=== PATIENT | female | born 1980 | race Caucasian/White ===

== ENCOUNTER 2017-08-17 23:45 | Inpatient (IN) | payer OTHER ==
[~2017-08-17] VITALS: Ht 154.9 cm; Wt 63.5 kg
[2017-08-18] MEDS: LR(*) 1000 ML BAG 1,000 ML IV PRN ×4 (00:45→12:30)
[2017-08-18] MEDS ORDERED: PENICILLIN G 5 MILLUN/100 ML 100 ML ONE (01:05)
[2017-08-18] MEDS ORDERED: fentaNYL CITR 100 MCG/2 ML AMP IT PRN (01:05)
[2017-08-18] MEDS ORDERED: PENICILLIN G 5 MILLUN/100 ML 100 ML IVPB ONE (01:05)
[2017-08-18] MEDS ORDERED: EPIDURAL KEYS XX PRN (01:05)
[2017-08-18] MEDS ORDERED: BUPIVACAINE 0.25% MPF INJ EPI PRN (01:05)
[2017-08-18] MEDS ORDERED: FENTANYL/ROPIVACAINE 100 ML BAG EPI PRN (01:05)
[2017-08-18] MEDS ORDERED: LIDO/EPI 2% MPF 1:200,000 20ML EPI PRN (01:05)
[2017-08-18] MEDS ORDERED: LIDOCAINE/PF 2% 200MG/10ML AMP 200 MG/10 ML AMPUL EPI PRN (01:05)
[2017-08-18] MEDS ORDERED: BUPIVACAINE 0.5% INJ 30ML VIAL EPI PRN (01:05)
[2017-08-18 01:11] LABS: PLATELET COUNT, AUTOMATED 171 K/uL (150-450)
--- NOTE | 2017-08-18 02:31 | Anesthesia OB Pre-Anes Eval ---
History of Present Illness Anesthesia Start Date: August 18, 2017 Anesthesia Start Time: 01:10 OB Anesthesia Diagnosis: spontaneous ROM Complications: None known EDC: August 25, 2017 : 1 Para: 0 Pain Ratin Heart Tones: WNL Result Diagram: 08/18/17 0100 Height (Inches): 61 Weight (Pounds): 136 Past Medical History Medical History: no pertinent history Attended Childbirth Classes?: No Hx Anesthesia Reactions: No Hx Family Anesthesia Reaction: No Allergies: Coded Allergies: No Known Drug Allergies (Unverified , 08/18/17) Anesthesia OB ROS Neurological: No migraines/headaches, No seizures, No neuropathy Eyes ROS: other (wearing glasses) ENT: Denies Tooth caps, Denies Loose teeth, Denies Chipped teeth, Denies Dentures, Denies Bridges, Denies Retainers, Denies Veneers, Denies Implants, Denies Tongue ring Pulmonary: No asthma, No smoker (pks/day/yrs) Airway Class: ll Cardiovascular ROS: No edema, No arrhythmia GI ROS: clear liquids Last Solids Date: August 17, 2017 Last Solids Time: 20:30 ROS: No Herpes, No STD(s), No Liver Disease, No Renal Disease Endocrine ROS: No diabetes, No gestational diabetes, No thyroid disorder Musculoskeletal ROS: No low back pain, No low back injury, No scoliosis ASA Classification: 2 Assessment and Plan Anesthesia Plan: CSE Assessment Past Medical, Surgical, Family and Obstetric Histories reviewed. Please see ACOG chart. Epidural anesthesia risks, complications and benefits explained to patient's satisfaction for labor and vaginal delivery and/or section. General anesthesia risks and benefits explained to patient's satisfaction. Questions invited, none asked. Pt. having difficult time tolerating contractions. Wanting to ambulation to BR, but unable. Returned to bed and able to sit for epidural. WILLIAM VEGAS CRNA August 18, 2017 02:31
--- NOTE | 2017-08-18 02:35 | Procedure Note ---
Anesthetic Placement Note Anesthesia Plan: CSE Permit for Anesthesia Signed: Yes Anesthesia Technique: Patient Sitting Anesthesia Prep: Chlorhexidine Interspace: L 3-4 Local Anesthetic: 1% Lidocaine, 25 Gauge Needle Amount Local - cc's: 2 Anesthesia Needle: 17g Touhy/Schliff Anesthesia Attempts: 1 Loss of Resistance: Air Depth of GENEVA (cm): 4 Epidural Needle Placement: No CSF, No Blood, No Parasthesia Intrathecal Needle: 27 Gauge Pencan Cerebral Spinal Fluid: Yes, Clear Catheter Insertion (cm): 7 Catheter Type: Rhodes - Spring Wound Epidural Dressing: Tegaderm, Tape, Adhesive [place] Anesthesia Tray: Lot Number ([id number]), Expiration Date (), Reference Number ([id number]) Anesthesia Medications: Intrathecal Dose: mcg Fentanyl (15), mg Marcaine MPF (1.75), Time (0138) Epidural Test Dose: 1.5 Lido/Epi (1:200,000), Dose - mL (3), Time (0155), Negative Epidural Loading Dose: 0.2% Ropivicaine, With Fentanyl 2mcg/ml, Dose - ml (5), Time (0205) Epidural Infusion: 0.2% Ropivicaine, With Fentanyl 2mcg/ml, Start Time: (0206) Epidural Pump Setting: Bolus Dose - mL (5), Lockout - Minutes (20), Maintenance Rate - mL/hr (4), Maximum per Hour - mL (20) Complications: None Comment: Tolerated procedure well without apparent anesthetic complications. LP site clear, no redness or edema. Denies headache or any residual paresthesia. Vital Signs Stable, Patient comfortable and condition stable. WILLIAM VEGAS CRNA August 18, 2017 02:35
--- NOTE | 2017-08-18 02:40 | Anesthesia Progress Note ---
Progress/Maintenance Anesthesia Note Date: August 18, 2017 Anesthesia Note Time: 02:35 Pain Intensity: 0 Pump: On Pump Rate (ML/HR): 4 Sensory Level: T-12 Motor Level: Bending Knees-Bilateral Position: Left Assessment and Plan Assessment Very comfortable, attempting to sleep. WILLIAM VEGAS CRNA August 18, 2017 02:40
[2017-08-18 03:17] VITALS: BP 110/70; Ht 154.9 cm; Wt 63.5 kg
[2017-08-18] MEDS: ePHEDrine 25 MG/5 ML DISP.SYR IVP PRN ×2 (03:45→06:05)
--- NOTE | 2017-08-18 04:53 | Anesthesia Progress Note ---
Progress/Maintenance Anesthesia Note Date: August 18, 2017 Anesthesia Note Time: 04:45 Pain Intensity: 5 Pump: On Pump Rate (ML/HR): 6 Motor Level: Bending Knees-Bilateral Dilatation: 3 Position: Right, Tilt Drug Bolus: 0.5% Marcaine (3 ml), Other (Fentenyl 50 mcgs) Assessment and Plan Assessment Pt. continues to feel some discomfort on her rt side even after bolus per pump. Pump rate changed to 6 ml/hr and manual bolus given of Fentenyl and 0.5% Marcaine plain. Will leave positioned on her rt side for at least 30 minutes. WILLIAM VEGAS CRNA August 18, 2017 04:53
[2017-08-18] MEDS: PENICILLIN G 2.5 MILLUN/100 ML 100 ML IVPB SCH ×3 (05:17→13:10)
[2017-08-18] MEDS ORDERED: PHENYLEPHRINE/NS/PF 0.4MG/10ML ONE (06:07)
--- NOTE | 2017-08-18 06:34 | Anesthesia Progress Note ---
Progress/Maintenance Anesthesia Note Date: August 18, 2017 Anesthesia Note Time: 06:20 Pain Intensity: 0 Pump: On Pump Rate (ML/HR): 4 Sensory Level: T-12 Dilatation: 4 Assessment and Plan Anesthesia Plan: CSE Assessment Called by RN that pt. has low BP after 2 doses of Ephedrine and additional bolus of IV fluids. Epidural pump rate decreased to 4 as pt. states she does not feel contractions. Neosynphrine 80 mcgs given and BP improved. Earlier nausea improved. WILLIAM VEGAS CRNA August 18, 2017 06:34
[2017-08-18] MEDS ORDERED: DLR(*) 1000 ML BAG 1,000 ML IV SCH (07:55)
[2017-08-18] MEDS ORDERED: cefOXitin SOD 2 GM VIAL 2 GM in NS(*) 0.9% 100 ML BAG 100 ML IVPB PRN (07:55)
[2017-08-18] MEDS ORDERED: TERBUTALINE SULF 1 MG/ML VIAL SUBQ PRN (07:55)
[2017-08-18] MEDS ORDERED: METOCLOPRAMIDE 10 MG/2 ML SDV IVP PRN (07:55)
[2017-08-18] MEDS ORDERED: OXYTOCIN 30 UNIT/D5LR 500 ML 500 ML IV PRN ×2 (07:55)
[2017-08-18] MEDS ORDERED: LIDOCAINE 1% LOCAL 300 MG/30ML INJ PRN (07:55)
[2017-08-18] MEDS ORDERED: FAMOTIDINE(*) 20MG/50ML PREMIX 50 ML IVPB PRN (07:55)
[2017-08-18] MEDS ORDERED: ONDANSETRON 4 MG/2 ML VIAL IVP PRN (08:00)
[2017-08-18] MEDS ORDERED: DLR(*) 1000 ML BAG 1,000 ML IV ONE (08:10)
--- NOTE | 2017-08-18 09:07 | History & Physical ---
History of Present Illness Age of Patient: 36 : 1 Para or TPAL: 0 EDC per LMP: August 25, 2017 Estimated Gestational Age: 39.0 Chief Complaint Labor History of Present Illness 36 yo presents in labor with regular contractions and report of SROM at 2330, clear. Presented around midnight 1-2 cm dilated/70%. Changed to 2 cm by 0100 and epidural called for. Once placed and comfortable, changed to 3.5 by 0430. BP low and episode of prolonged tachycardia which ultimately responded to fluid bolus and BP support with ephedrine and adjusting epidural dosing. Currently 5cm/100%/-1 with pitocin to augment contractions as they spaced out. FHTs run high baseline 150-160 with moderate variability and accelerations noted. Past Medical, Surgical, Family and Obstetric Histories reviewed. Please see [facility] chart. History Patient's Blood Type: O Positive Rubella Status: Immune Group B Strep Screen: Positive Past Medical History: PMDD Allergies: Coded Allergies: No Known Drug Allergies (Unverified , 08/18/17) Review of Systems All Systems Reviewed/Normal: Yes, Except as Noted Other as per HPI Exam General Exam Vital Signs Vital Signs Date Time Temp Pulse Resp B/P (MAP) Pulse Ox O2 Delivery O2 Flow Rate FiO2 08/18/17 03:17 98.5 72 18 110/70 (83) 95 Room Air General Apperance: Alert/Awake/No Acute Distress ENT: Normal Cardiovascular: Regular Rate and Rhythm Respiratory: No Respiratory Distress Abdomen: Soft, Non-Tender, Non-Distended, Gravid - Non-Tender Integumentary: Skin Intact without Lesions or Rash Psychological: Alert & Oriented X3, Appropriate Mood & Affect Vaginal Discharge/Fluid?: Bloody Show, Clear Fluid Cervical Dialation: 5 Cervical Effacement (%): 100 Cervical Consistency: Soft Cervical Position: Anterior Station: -1 Presentation: Vertex Uterine Contraction Strength: Moderate Fetus Heart Tone Variabilty: Moderate FHT Accelerations: 15X15 FHT Category: I Medical Decision Making Data Points Result Diagram: 08/18/17 0100 VTE Prophylasis: Adult Deep Vein Thrombosis/Pulmonary: No Pharmacological Contraindicati: Pt at Low Risk for VTE Mechanical Contraindications: Pt at Low Risk for VTE Assessment and Plan INDUSTRIAL ENG Plan: Routine Labor Care Problems: (1) 39 weeks gestation of Assessment & Plan: Augmenting contraction strength and frequency with Pitocin. Will adjust dosing as needed. (2) Normal labor Assessment & Plan: Expecting (3) Group B Streptococcus carrier state affecting Assessment & Plan: Penicillin prophylaxis per protocol. DARI OWEN MD August 18, 2017 09:07
--- NOTE | 2017-08-18 10:28 | Anesthesia Progress Note ---
Progress/Maintenance Anesthesia Note Date: August 18, 2017 Anesthesia Note Time: 10:20 Pain Intensity: 1 Pump: On Pump Rate (ML/HR): 4 Sensory Level: t-12 Dilatation: 5 Position: Right, Tilt Assessment and Plan Anesthesia Plan: CSE Assessment Remains comfortable. States she feels "something, but not sure where from". Numerous visitors at bedside. WILLIAM VEGAS CRNA August 18, 2017 10:28
--- NOTE | 2017-08-18 12:50 | Anesthesia Progress Note ---
Progress/Maintenance Anesthesia Note Date: August 18, 2017 Anesthesia Note Time: 12:40 Pain Intensity: 7 Pump: On Pump Rate (ML/HR): 6 Sensory Level: T-12 Motor Level: Bending Knees-Bilateral Dilatation: 6 Position: Left, Tilt Drug Bolus: 0.5% Marcaine (4 ml), Other (Fentenyl 35 mcgs) Assessment and Plan Assessment Pt. states she feels strong contractions after using bolus per pump x2. Manual bolus and pump rate increased to 6 ml/hr. WILLIAM VEGAS CRNA August 18, 2017 12:50
--- NOTE | 2017-08-18 16:14 | Anesthesia Progress Note ---
Progress/Maintenance Anesthesia Note Date: August 18, 2017 Anesthesia Note Time: 16:10 Pain Intensity: 0 Pump: Off Dilatation: 10 Assessment and Plan Assessment Pump now empty, dc'd. Pt. thinks she might feel some contractions. Laboring down and will observe for increase discomfort when pushing. WILLIAM VEGAS CRNA August 18, 2017 16:14
--- NOTE | 2017-08-18 18:43 | Anesthesia Progress Note ---
Progress/Maintenance Anesthesia Note Date: August 18, 2017 Anesthesia Note Time: 18:10 Pain Intensity: 0 Pump: Off Motor Level: Bending Knees-Bilateral Dilatation: 10 Position: Semi-Fowlers Drug Bolus: 0.25% Marcaine (5 ml), Other (Fentenyl 50 mcgs) Assessment and Plan Assessment Pt. was able to push well. Manual bolus of 5 ml 0.25% Marcaine pl with Fentenyl , as pt./family was concerned she might be "too numb to push". Empty syringe attached to epidural catheter and RN agrees to remove with ambulation. Patient instructed the first ambulation is to be with help of nursing staff. Instructed to preform deep knee bends at bedside before walking. Anesthesia Stop Day: August 18, 2017 Anesthesia Stop Time: 18:10 WILLIAM VEGAS CRNA August 18, 2017 18:43
[2017-08-18] MEDS ORDERED: BENZOCAINE 20% 60 ML BTL TP PRN (18:50)
[2017-08-18] MEDS ORDERED: MAGNESIUM HYDROXIDE* 30ML UDCP PO PRN (18:50)
[2017-08-18] MEDS ORDERED: IBUPROFEN 800 MG TAB PO SCH (18:50)
[2017-08-18] MEDS ORDERED: INFLUENZA VIRUS VAC 0.5 ML SYR IM ONLY ONE (18:50)
[2017-08-18] MEDS ORDERED: LANOLIN OINT 7 GM TUBE TP PRN (18:50)
[2017-08-18] MEDS ORDERED: HYDROCORTISONE 2.5% CR 30GM TB PR PRN (18:50)
[2017-08-18] MEDS ORDERED: ACETAMINOPHEN 325 MG TAB PO PRN (18:50)
[2017-08-18] MEDS ORDERED: GLYCERIN/WITCH HAZEL LEAF 1 PK TOP PRN (18:50)
--- NOTE | 2017-08-18 18:58 | OB Delivery Note ---
Delivery Note Vaginal Delivery Type: Spont. Vaginal Delivery Delivery Date: August 18, 2017 Delivery Time: 18:18 Estimated Gestational Age(wks): 39.0 Delivery Anesthesia: Epidural Sex: Female Infant Weight (gms): 2950 Apgars: 1 Minute (8), 5 Minute (9) Repair Needed: Episiotomy-Midline, Laceration, 2nd Degree Estimated Blood Loss: 400 Delivery Complications: Laceration Notes: Presented in labor early this AM. Progressed through active phase of labor regularly; 1-2 on admission, 3-4cm at 0600, 6cm at 1113, 7-8 cm [id number] and completely dilated at 1513. She was allowed to labor down for a time. Pushing was difficult due to epidural but progression with tug-of-war helped. Delivery in RENEA position over 2nd degree laceration and left labial laceration occurred while controlled and stabilizing the perineum. Nuchal x 1 easily reduced. Apgars 8,9. Placenta spontaneous and intact. Perineum repaired with 2-0 chromic in the usual fashion. No complications. Lithographic Press Feeder in Attendence: No Copies to: DARI OWEN MD, TRAVIS MD August 18, 2017 18:57
[2017-08-18] MEDS: IBUPROFEN 800 MG TAB PO SCH (19:02)
[2017-08-18 19:49] VITALS: BP 113/59
[2017-08-18] MEDS: HYDROmorphone HCL 2 MG TAB PO PRN ×2 (20:25→21:24)
[2017-08-18] MEDS: DOCUSATE CALCIUM 240 MG CAP PO SCH (20:25)
[2017-08-19 01:00] VITALS: BP 104/65
[2017-08-19] MEDS: IBUPROFEN 800 MG TAB PO SCH ×3 (03:30→19:50)
[2017-08-19 07:30] VITALS: BP 107/61
[2017-08-19] MEDS: HYDROmorphone HCL 2 MG TAB PO PRN ×4 (07:43→18:21)
--- NOTE | 2017-08-19 09:07 | OB/GYN Progress Note ---
OB Subjective Progress Notes Subjective Has ambulated slowly. Been up to empty bladder and better this last time. Bleeding light. GI: NEG Nausea : Vaginal Bleeding (light) Pain: Mild OB Objective Physical Exam Vital Signs Date Time Temp Pulse Resp B/P (MAP) Pulse Ox O2 Delivery O2 Flow Rate FiO2 08/19/17 07:30 98.1 87 20 107/61 (76) 96 Room Air General Appearance: Alert/Awake/No Acute Distress Cardiovascular: Normal Rhythm & Peripheral Pulses, Regular Rate and Rhythm Respiratory: No Respiratory Distress, Clear to Auscultation Abdomen: Soft, Non-Tender, Non-Distended, Fundus Firm (deviated to the right) Integumentary: Skin Intact without Lesions or Rash Psychological: Alert & Oriented X3, Appropriate Mood & Affect Result Diagram: 08/19/17 0559 Assessment and Plan 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 Continue to ambulate as needed. DARI OWEN MD August 19, 2017 09:07
[2017-08-19] MEDS: DOCUSATE CALCIUM 240 MG CAP PO SCH ×2 (09:12→21:56)
--- NOTE | 2017-08-19 11:55 | Anesthesia Post Eval Note ---
Anesthesia Post Eval Note Vital Signs Date Time Temp Pulse Resp B/P (MAP) Pulse Ox O2 Delivery O2 Flow Rate FiO2 08/19/17 07:30 98.1 87 20 107/61 (76) 96 Room Air Pt able to participate in Eval: Yes Cardiovascular Status: Satisfactory Respiratory Status: Satisfactory Pain Managment: Satisfactory PO Nausea/Vomiting: Satisfactory Temperature Management: Satisfactory Mental Status: Satisfactory, Alert, Oriented X3 Post-Op Hydration Status: Satisfactory, Tolerating PO Well Anesthesia Type: CSE Anesthesia Tolerance: Pt. resting in bed but requests to show her back at a latter time. RN did observe puncture site and it shows no redness or edema. Tolerated procedure well without apparent anesthetic complications. LP site clear, no redness or edema. Denies headache or any residual paresthesia. Vital Signs Stable, Patient comfortable and condition stable. WILLIAM VEGAS CRNA August 19, 2017 11:55
[2017-08-19 12:00] VITALS: BP 106/63
[2017-08-19 16:40] VITALS: BP 118/63
[2017-08-19 19:54] VITALS: BP 121/74
[2017-08-20 03:32] VITALS: BP 111/63
[2017-08-20] MEDS: IBUPROFEN 800 MG TAB PO SCH ×2 (03:49→11:32)
--- NOTE | 2017-08-20 08:46 | OB/GYN Progress Note ---
OB Subjective Progress Notes Subjective Doing well. Pain well controlled and ambulating. Voiding well and bleeding light. Breast feeding. GI: NEG Nausea : Voiding Well Pain: Mild OB Objective Physical Exam Vital Signs Date Time Temp Pulse Resp B/P (MAP) Pulse Ox O2 Delivery O2 Flow Rate FiO2 08/20/17 03:32 98.4 82 16 111/63 (79) Room Air 08/19/17 16:40 92 General Appearance: Alert/Awake/No Acute Distress Neurological: No Gross deficits Cardiovascular: Normal Rhythm & Peripheral Pulses, Regular Rate and Rhythm Respiratory: No Respiratory Distress, Clear to Auscultation Abdomen: Soft, Non-Tender, Non-Distended, Fundus Firm (deviated to the right) Integumentary: Skin Intact without Lesions or Rash Psychological: Alert & Oriented X3, Appropriate Mood & Affect Result Diagram: 08/19/17 0559 Assessment and Plan 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 Reviewed precautions and discharge instructions. f/u at 6 weeks. DARI OWEN MD August 20, 2017 08:46
[2017-08-20] MEDS ORDERED: IBUP800T37 PO (08:47)
[2017-08-20] MEDS ORDERED: HYDR2TAB4 PO (08:47)
--- NOTE | 2017-08-20 08:49 | OB/GYN Discharge Summary ---
Discharge Summary Reason for Hosp/Final Diag: (1) 39 weeks gestation of (2) Normal labor (3) Group B Streptococcus carrier state affecting (4) care and examination immediately after delivery Hospital Course & Plan: Home today. Reviewed precautions and discharge instructions. f/u at 6 weeks. Lates Vital Signs Vital Signs Date Time Temp Pulse Resp B/P (MAP) Pulse Ox O2 Delivery O2 Flow Rate FiO2 08/20/17 03:32 98.4 82 16 111/63 (79) Room Air 08/19/17 16:40 92 Weight (Pounds): 140 Result Diagram: 08/19/17 0559 Condition: Improved Discharge: Home, Self Correction Meds Active Scripts Hydromorphone Hcl (HYDROMORPHONE HCL) 2 Mg Tablet, 2-4 MG PO Q4H Y for PAIN, # 10 TAB 0 Refills Prov:DELL GREENBERG MD 08/20/17 Follow up Referrals: [employer] ROOM OPERATOR - In 6 Weeks @ [facility] with Dell Greenberg Md Follow up with: Dr. Greenberg [phone] Follow up in: 6 wks PP or PO Discharge Diet: As Tolerates Discharge Activity: As Tolerates, No Heavy Lifting x 6 wks, No Heavy Lifting > 10lb, Pelvic Rest Copies to: DELL GREENBERG MD, TRAVIS MD August 20, 2017 08:49
[2017-08-20] MEDS ORDERED: DIPHTH/TETANUS/ACEL. PERTUSSIS IM ONLY ONE (09:00)
[2017-08-20] MEDS ORDERED: MEASLES,MUMP,RUBELLA VAC 0.5ML SUBQ ONE (09:00)
[2017-08-20 09:40] VITALS: BP 109/68
[2017-08-20] MEDS: HYDROmorphone HCL 2 MG TAB PO PRN ×2 (10:11→10:12)
[2017-08-20] MEDS: DOCUSATE CALCIUM 240 MG CAP PO SCH (10:12)
== END 2017-08-20 15:35 | disposition home or self-care (01) | DRG 775 ==
LOC: OB 23:45
PROVIDERS: ADMIT Obstetrics & Gynecology; ATTEND Obstetrics & Gynecology
PROC: 10E0XZZ Delivery of Products of Conception, External Approach (ICD-10-PCS; principal; 2017-08-18)
PROC: 0KQM0ZZ Repair Perineum Muscle, Open Approach (ICD-10-PCS; 2017-08-18)
DX: O99.824 Streptococcus B carrier state complicating childbirth (principal); O69.81X0 Labor and delivery complicated by cord around neck, without compression, not applicable or unspecified; R00.0 Tachycardia, unspecified; O70.1 Second degree perineal laceration during delivery; Z3A.39 39 weeks gestation of pregnancy; Z37.0 Single live birth
CPT/HCPCS: 36415; 85025; 85027; 86850; 86900; 86901; J2370; J2540; J2590; J3490; J7120

== ENCOUNTER 2018-04-11 21:06 | Emergency (ER) | payer OTHER ==
[2017-08-18 03:17] VITALS: BMI 26.4
[~2018-04-11 21:06] MED LIST: HYDR2TAB4 PO; IBUP800T37 PO
--- NOTE | 2018-04-11 21:14 | ER Report ---
History and Physical Time Seen By MD: 21:14 HPI/ROS CHIEF COMPLAINT: Dont feel well, passed out HISTORY OF PRESENT ILLNESS: Pt felt fine and has not been sick. Pt states she was at the movies and started not feeling well. Pt states she started feeling nauseated, light headed "i thought maybe I am getting the flu". and her got up to leave the movie. went out to get the car. Came back and pt was on the ground. Pt not sure if she laid down or if she passed out. "i cant remember'. Pt does have hx of passing out "i used to pass out with my periods and I did in child , but its been awhile". PT denies uri symptoms. pt denies chest pain. Pt does states she has abdominal cramping and nausea. Still light headed. + chills no vaginal bleeding. Pt is currently breasts feeding from a baby in July. Pt did wet herself in the car on her way to the emergency room. No seizure activity. Pt denies dysuria, back pain or any hx of incontinence. REVIEW OF SYSTEMS: Constitutional: No fever, + chills. Eyes: No discharge. ENT: No sore throat. Cardiovascular: No chest pain, no palpitations. Respiratory: No cough, no shortness of breath. Gastrointestinal: + abdominal pain, +nausea, no vomiting. Genitourinary: No hematuria, incontinence. Musculoskeletal: No back pain. Skin: No rashes. Neurological: No headache, + syncope Allergies: Coded Allergies: No Known Drug Allergies (Unverified , 08/18/17) Home Meds Active Scripts Ibuprofen (IBUPROFEN) 800 Mg Tablet, 1 TAB PO Q8H PRN for PAIN, #30 TAB 0 Refills Take with food for pain no closer than every 8 hours. Prov:DARI OWEN MD 08/20/17 Hydromorphone Hcl (HYDROMORPHONE HCL) 2 Mg Tablet, 2-4 MG PO Q4H PRN for PAIN, #10 TAB 0 Refills Prov:DARI OWEN MD 08/20/17 Past Medical/Surgical History Pmhx: group B strep + Hx Smoking: No Smoking Status: Never Smoker Exposure to Second Hand Smoke?: No Hx Alcohol Use: No Constitutional Vital Sign - Last 24 Hours 04/11/18 04/11/18 04/11/1811/19 21:11 21:15 21:16 21:21 Pulse 58 59 63 Resp 18 21 14 B/P (MAP) 79/61 79/61 (67) Pulse Ox 100 100 89 O2 Delivery Room Air 04/11/18 04/11/18 04/11/18 21:22 21:23 21:26 Pulse 55 Resp 9 B/P (MAP) 88/50 (63) 81/45 (57) Pulse Ox 96 Physical Exam General Appearance: The patient is alert, has no immediate need for airway protection and no signs of toxicity. Eyes: Pupils equal and round no pallor or injection, EOMI ENT: no pharyngeal erythema or exudates, Mucous membranes are moist, TM are nl b/l Respiratory: There are no retractions, lungs are clear to auscultation. Cardiovascular: Regular rate and rhythm. pulses are equal and symmetrical Gastrointestinal: Abdomen is soft and non tender, no masses, bowel sounds hyperactive, no guarding, no rigidity or rebound Neurological: Cranial nerves II-XII grossly intact, no sensory or motor loss Skin: Warm and dry, no rashes. Musculoskeletal: Neck is supple non tender, no vertebral tenderness Extremities are nontender, non swollen and have full range of motion. DIFFERENTIAL DIAGNOSIS: After history and physical exam differential diagnosis was considered for influenza, dehydration, arrhythmia, orthostatic hypotension, seizure Medical Decision Making Data Points Result Diagram: 04/11/18211604/11/182116 Laboratory Hematology Test 04/11/18 21:17 04/11/18 21:54 04/11/18 22:54 Red Blood Count 5.18 M/uL (4.17-5.56) Mean Corpuscular Volume 89.8 fL (80.0-96.0) Mean Corpuscular Hemoglobin 31.0 pg (26.0-33.0) Mean Corpuscular Hemoglobin Concent 34.5 g/dL (32.0-36.0) Red Cell Distribution Width 14.2 % (11.5-14.5) Mean Platelet Volume 8.8 fL (7.2-11.1) Neutrophils (%) (Auto) 42.7 % (39.4-72.5) Lymphocytes (%) (Auto) 45.6 % (17.6-49.6) Monocytes (%) (Auto) 8.2 % (4.1-12.4) Eosinophils (%) (Auto) 2.5 % (0.4-6.7) Basophils (%) (Auto) 1.0 % (0.3-1.4) Nucleated RBC Relative Count (auto) 0.0 /100WBC Neutrophils # (Auto) 4.3 K/uL (2.0-7.4) Lymphocytes # (Auto) 4.6 K/uL (1.3-3.6) Monocytes # (Auto) 0.8 K/uL (0.3-1.0) Eosinophils # (Auto) 0.3 K/uL (0.0-0.5) Basophils # (Auto) 0.1 K/uL (0.0-0.1) Nucleated RBC Absolute Count (auto) 0.00 K/uL Peripheral Blood Smear Yes Y/N Sodium Level 137 mmol/L (137-145) Potassium Level 3.2 mmol/L (3.5-5.0) Chloride Level 105 mmol/L (98-107) Carbon Dioxide Level 19 mmol/L (22-31) Blood Urea Nitrogen 19 mg/dl (7-18) Creatinine 0.90 mg/dl (0.52-1.04) Glomerular Filtration Rate Calc > 60.0 Random Glucose 155 mg/dl (75-110) Calcium Level 9.6 mg/dl (8.4-10.2) Magnesium Level 2.3 mg/dl (1.7-2.2) Total Bilirubin 1.3 mg/dl (0.2-1.3) Aspartate Amino Transf (AST/SGOT) 29 U/L (0-35) Alanine Aminotransferase (ALT/SGPT) 24 U/L (0-56) Alkaline Phosphatase 94 U/L (0-126) Troponin I < 0.012 ng/ml Total Protein 7.6 g/dl (6.3-8.2) Albumin 4.5 g/dl (3.5-5.0) Amylase Level 89 U/L (0-110) Lipase 97 U/L (23-300) Human Chorionic Gonadotropin, Quant < 2 mIU/ml Influenza Virus Type A (PCR) Negative (NEGATIVE) Influenza Virus Type B (PCR) Negative (NEGATIVE) Urine Color Straw Urine Clarity Clear Urine pH 5.0 pH (4.8-9.5) Urine Specific [place] 1.010 Urine Protein Negative mg/dL (NEGATIVE) Urine Glucose (UA) Negative mg/dL (NEGATIVE) Urine Ketones Trace mg/dL (NEGATIVE) Urine Blood Negative (NEGATIVE) Urine Nitrite Negative (NEGATIVE) Urine Bilirubin Negative (NEGATIVE) Urine Urobilinogen Negative mg/dL (0.2-1.9) Urine Leukocyte Esterase Negative (NEGATIVE) Urine RBC None /HPF (0-2/HPF) Urine WBC 1 /HPF (0-5/HPF) Urine Squamous Epithelial Cells Few /LPF (</=FEW) Urine Bacteria Negative /HPF (NONE-FEW) Urine Hyaline Casts Few /LPF (NONE-FEW) Urine Mucus Few /HPF (NONE-FEW) Chemistry Test 04/11/18 21:17 04/11/18 21:54 04/11/18 22:54 White Blood Count 10.1 k/uL (4.5-11.0) Red Blood Count 5.18 M/uL (4.17-5.56) Hemoglobin 16.0 g/dL (12.0-16.0) Hematocrit 46.5 % (34.0-47.0) Mean Corpuscular Volume 89.8 fL (80.0-96.0) Mean Corpuscular Hemoglobin 31.0 pg (26.0-33.0) Mean Corpuscular Hemoglobin Concent 34.5 g/dL (32.0-36.0) Red Cell Distribution Width 14.2 % (11.5-14.5) Platelet Count 328 K/uL (150-450) Mean Platelet Volume 8.8 fL (7.2-11.1) Neutrophils (%) (Auto) 42.7 % (39.4-72.5) Lymphocytes (%) (Auto) 45.6 % (17.6-49.6) Monocytes (%) (Auto) 8.2 % (4.1-12.4) Eosinophils (%) (Auto) 2.5 % (0.4-6.7) Basophils (%) (Auto) 1.0 % (0.3-1.4) Nucleated RBC Relative Count (auto) 0.0 /100WBC Neutrophils # (Auto) 4.3 K/uL (2.0-7.4) Lymphocytes # (Auto) 4.6 K/uL (1.3-3.6) Monocytes # (Auto) 0.8 K/uL (0.3-1.0) Eosinophils # (Auto) 0.3 K/uL (0.0-0.5) Basophils # (Auto) 0.1 K/uL (0.0-0.1) Nucleated RBC Absolute Count (auto) 0.00 K/uL Peripheral Blood Smear Yes Y/N Glomerular Filtration Rate Calc > 60.0 Calcium Level 9.6 mg/dl (8.4-10.2) Magnesium Level 2.3 mg/dl (1.7-2.2) Total Bilirubin 1.3 mg/dl (0.2-1.3) Aspartate Amino Transf (AST/SGOT) 29 U/L (0-35) Alanine Aminotransferase (ALT/SGPT) 24 U/L (0-56) Alkaline Phosphatase 94 U/L (0-126) Troponin I < 0.012 ng/ml Total Protein 7.6 g/dl (6.3-8.2) Albumin 4.5 g/dl (3.5-5.0) Amylase Level 89 U/L (0-110) Lipase 97 U/L (23-300) Human Chorionic Gonadotropin, Quant < 2 mIU/ml Influenza Virus Type A (PCR) Negative (NEGATIVE) Influenza Virus Type B (PCR) Negative (NEGATIVE) Urine Color Straw Urine Clarity Clear Urine pH 5.0 pH (4.8-9.5) Urine Specific [place] 1.010 Urine Protein Negative mg/dL (NEGATIVE) Urine Glucose (UA) Negative mg/dL (NEGATIVE) Urine Ketones Trace mg/dL (NEGATIVE) Urine Blood Negative (NEGATIVE) Urine Nitrite Negative (NEGATIVE) Urine Bilirubin Negative (NEGATIVE) Urine Urobilinogen Negative mg/dL (0.2-1.9) Urine Leukocyte Esterase Negative (NEGATIVE) Urine RBC None /HPF (0-2/HPF) Urine WBC 1 /HPF (0-5/HPF) Urine Squamous Epithelial Cells Few /LPF (</=FEW) Urine Bacteria Negative /HPF (NONE-FEW) Urine Hyaline Casts Few /LPF (NONE-FEW) Urine Mucus Few /HPF (NONE-FEW) Urinalysis Test 04/11/18 22:54 Urine Color Straw Urine Clarity Clear Urine pH 5.0 pH (4.8-9.5) Urine Specific [place] 1.010 Urine Protein Negative mg/dL (NEGATIVE) Urine Glucose (UA) Negative mg/dL (NEGATIVE) Urine Ketones Trace mg/dL (NEGATIVE) Urine Blood Negative (NEGATIVE) Urine Nitrite Negative (NEGATIVE) Urine Bilirubin Negative (NEGATIVE) Urine Urobilinogen Negative mg/dL (0.2-1.9) Urine Leukocyte Esterase Negative (NEGATIVE) Urine RBC None /HPF (0-2/HPF) Urine WBC 1 /HPF (0-5/HPF) Urine Squamous Epithelial Cells Few /LPF (</=FEW) Urine Bacteria Negative /HPF (NONE-FEW) Urine Hyaline Casts Few /LPF (NONE-FEW) Urine Mucus Few /HPF (NONE-FEW) EKG/Imaging EKG Interpretation sinus marely @ 55 with sinus arrhythmia ED Course/Re-evaluation Clinical Indication for ER IV: Hydration, IV Access ED Course check labs and give fluids 04/11/2018 9:46:37 pm Pts potassium is low, will replace and check magnesium. pt is feeling better with fluids. 04/11/2018 10:27:11 pm Pts blood pressure improving with fluids. Pt does c/o of some crampy abdominal pain that is diffuse. Nausea improved with Zofran. no diarrhea. Awaiting urine sample. 04/11/2018 11:07:08 pm PTs urine does not show infection pt denies dysuria so will not send culture. Pt does have trace ketones and admits not having much to eat "I had a kayli and Im not sure if it was bad". Pt still c/o of some diffuse abdominal cramping which has not localized. Offered to obtain a CT to look further at her abdomen however at this time pt declined. I did discuss with pt that if symptoms worsen or if pain localizes to a specific area she should return for possible imaging at that time. Pts blood pressure did improve with IV fluids. No vomiting in ed. Decision to Disposition Date: Apr 11, 2018 Decision to Disposition Time: 23:11 Depart Departure Latest Vital Signs Vital Signs Date Time Temp Pulse Resp B/P (MAP) Pulse Ox O2 Delivery O2 Flow Rate FiO2 04/11/18 21:26 55 9 96 04/11/18 21:23 81/45 (57) 04/11/18 21:11 Room Air Impression: Primary Impression: Syncope and collapse Additional Impressions: Dehydration Hypokalemia Hypotension Condition: Improved Disposition: HOME OR SELF-CARE Referrals: BYRON DON MD (PCP) ALLIE WELLS MD Neurologist LATONYA EARLY MD Web Designer Patient Instructions: Dehydration (ED), Hypokalemia (ED), Syncope (ED) Additional Instructions: You were mildly dehydrated with a low potassium. We replaced both while in the emergency department. If you continue to have episodes of passing out then you should follow up with neurologist and picker tender helper. If your symptoms worsen prior to following up then please return to the emergency department. Problem Qualifiers Additional Impressions: Hypotension Hypotension type: unspecified hypotension type Qualified Codes: I95.9 - Hypotension, unspecified SIDNEY REYNOLDS DO Apr 11, 2018 21:14
[2018-04-11] MEDS ORDERED: NS(*) 0.9% 1000 ML BAG 1,000 ML IV ONE ×3 (21:25→22:15)
[2018-04-11] MEDS ORDERED: ONDANSETRON 4 MG/2 ML VIAL IVP ONE (21:25)
[2018-04-11] MEDS ORDERED: POTASSIUM CHL 20 MEQ TABCR PO ONE (21:45)
[2018-04-11 21:54] LABS: PLATELET COUNT, AUTOMATED 328 K/uL (150-450)
[2018-04-11] MEDS ORDERED: DICYCLOMINE HCL 10 MG CAP PO ONE (22:15)
--- NOTE | 2018-04-11 22:57 | EKG ---
FACILITY: [facility] - [place] PATIENT NAME: LOLIS PETER : [id number] MR: [id number] V: [id number] EXAM DATE: ORDERING PHYSICIAN: SIDNEY REYNOLDS TECHNOLOGIST: SHANON Test Reason : SYNCOPE Blood Pressure : / mmHG Vent. Rate : 057 BPM Atrial Rate : 057 BPM P-R Int : 136 ms QRS Dur : 064 ms QT Int : 470 ms P-R-T Axes : 054 083 076 degrees QTc Int : 457 ms Sinus bradycardia with sinus arrhythmia Otherwise normal ECG No previous ECGs available Confirmed by CHRISTIANO SOLORIO ([id number]) on 04/12/2018 3:57:58 AM Referred By: Confirmed By:CHRISTIANO SOLORIO
[2018-04-11 23:30] VITALS: BP 96/61
== END 2018-04-11 23:46 | disposition home or self-care (01) ==
LOC: ER 21:15
DX: R55 Syncope and collapse (principal); E86.0 Dehydration; E87.6 Hypokalemia; I95.9 Hypotension, unspecified
CPT/HCPCS: 81001; 82150; 83690; 83735; 84484; 84702; 85025; 87502; 93005; 96361; 96374; 99284; J2405; J7030; 82040; 82247; 82310; 82374; 82435; 82565; 82947; 84075; 84132; 84155; 84295; 84450; 84460; 84520

== ENCOUNTER → 2018-10-24 | Outpatient (CLI) | payer OTHER ==
[2017-08-18 03:17] VITALS: BMI 26.4
--- NOTE | 2018-10-24 16:28 | RADIOLOGY IMAGING REPORT ---
[place] [facility] [place] NAME[place] Milagros Medel : 1980 MR: [id number] V: [id number] EXAM DATE: [id number] ORDERING PHYSICIAN: AGUILA HATFIELD TECHNOLOGIST: Location: [facility] - [place] Patient: Milagros Medel : 1980 Visit/Account:[id number] Date of Sevice: 10/24/2018 Examination: 1st trimester obstetric ultrasound Comparison: None Available History: Vaginal bleeding for 2 days. LMP: 08/18/2018 Gestational age based on LMP: 9 weeks 4 days MADIHA based on LMP: 05/25/2019 Findings: Standard endovaginal obstetric ultrasound with color flow and spectral analysis. Uterus: Single intrauterine gestational sac containing a single embryo and yolk sac. No cardiac activity is identified on grayscale, Doppler, or M-mode. Based on a crown-rump length of 11.50 mm, gestational age is 7 weeks 3 days for an estimated delivery date of 06/09/2019. Adnexa: Right ovary: 3.2 x 2.4 x 1.3 cm. No suspicious ovarian or adnexal mass. Normal arterial and venous w aveforms on Doppler interrogation. Left ovary: 2.7 x 1.7 x 1.7 cm. No suspicious ovarian or adnexal mass. Normal arterial and venous wa veforms on Doppler interrogation. Free fluid: None Urinary bladder: Empty IMPRESSION: demise. Results were discussed with AGUILA HATFIELD at 10/24/2018 4:20 PM. Report Dictated By: Reji Smith MD at 10/24/2018 4:14 PM Report E-Signed By: Reji Smith MD at 10/24/2018 4:20 PM WSN:[id number]
== END ==
LOC: US 15:15
PROVIDERS: ATTEND Student in an Organized Health Care Education/Training Program
DX: O36.4XX1 Maternal care for intrauterine death, fetus 1 (principal)
CPT/HCPCS: 76817